=== PATIENT | male | born 1950 | race Caucasian/White ===

== ENCOUNTER → 2017-10-06 | Outpatient (CLI) | payer MEDICARE, OTHER | END | disposition home or self-care (01) | LOC: NM 09:22 | DX: C61 Malignant neoplasm of prostate (principal); K42.9 Umbilical hernia without obstruction or gangrene; K57.30 Diverticulosis of large intestine without perforation or abscess without bleeding; N40.0 Benign prostatic hyperplasia without lower urinary tract symptoms; J44.9 Chronic obstructive pulmonary disease, unspecified; Z85.46 Personal history of malignant neoplasm of prostate; Z79.01 Long term (current) use of anticoagulants | CPT/HCPCS: 74177; 78306; 96374; A9503 ==

== ENCOUNTER → 2017-11-18 | Outpatient (CLI) | payer MEDICARE, OTHER | END | disposition home or self-care (01) | LOC: US 08:07 | DX: I83.813 Varicose veins of bilateral lower extremities with pain (principal); I48.92 Unspecified atrial flutter; I48.91 Unspecified atrial fibrillation; I70.0 Atherosclerosis of aorta | CPT/HCPCS: 93306; 93970 ==

== ENCOUNTER → 2018-05-21 | Outpatient (CLI) | payer MEDICARE, OTHER ==
[2016-04-23 10:37] VITALS: BP 132/98
[~2018-05-21] MED LIST: AMIO200T4 PO; AMLO10TA6; APIX5TAB PO; ASPI-630 PO; BUDE10.2 IH; CARV12.52; DILT120C80 PO; DOCU-150 PO; FURO40TA4 PO; MULT-246 PO; OLME1TAB25; OMEG-123 PO; OMEP40CA5; OMEP40CA5 PO; POTA10TA12; SPIR25TA5; SUCR1TAB35; VALS1TAB33
--- NOTE | 2018-05-21 14:25 | CARD ---
MR#: [id number] Date of Study: 05/21/2018 Ordering Physician: ABIDA WILLADR, Referring Physician: ABIDA WILLARD Tech: Marta Dent RDCS APPROVED REPORT EXAM: Two-dimensional and M-mode echocardiogram with Doppler and color Doppler. Other Information Quality : AverageHR: 52bpm Rhythm : Bradycardia INDICATION Arrhythmia 2D DIMENSIONS RVDd3.5 (2.9-3.5cm)Left Atrium(2D)4.2 (1.6-4.0cm) IVSd1.7 (0.7-1.1cm)Aortic Root(2D)4.0 (2.0-3.7cm) LVDd5.0 (3.9-5.9cm)LVOT Diameter2.4 (1.8-2.4cm) PWd1.1 (0.7-1.1cm)LVDs3.5 (2.5-4.0cm) FS (%) 30.1 %SV67.6 ml LVEF(%)57.1 (>50%) M-Mode DIMENSIONS Left Atrium(MM)4.55 (2.5-4.0cm)Aortic Root4.15 (2.2-3.7cm) Aortic Valve AoV Peak Nikolay.448.2cm/sAoV PLJ394.5cm AO Peak GR.80.4mmHgLVOT Peak Nikolay.140.5cm/s AO Mean GR.52mmHgAVA (VTI)1.40cm2 Mitral Valve MV E Lmnybcmf04.7cm/sMV E Peak Gr.2mmHg MV DECEL [id number] A Befezygf36.6cm/s MV E Mean Gr.1mmHgE/A Ratio1.8 MV A [id number] Pulmonary Valve PV Peak Wtjqgvwl62.0cm/s Pulmonary Vein S1 Xmzofrvm21.6cm/sD2 Xoawxiez97.5cm/s PVa [id number] LEFT VENTRICLE The left ventricle is normal size. There is mild to moderate concentric left ventricular hypertrophy. The left ventricular systolic function is normal. The Ejection Fraction is estimated at 60%. There i s normal LV segmental wall motion. Transmitral Doppler flow pattern is Grade I-abnormal relaxation pa ttern. RIGHT VENTRICLE The right ventricle is normal size. There is normal right ventricular wall thickness. The right ventr icular systolic function is normal. ATRIA The left atrium is moderately dilated. The right atrium is borderline dilated. The interatrial septum is intact with no evidence for an atrial septal defect or patent foramen ovale as noted on 2-D or Do ppler imaging. AORTIC VALVE The aortic valve is severely thickened. Doppler and Color Flow revealed trace to mild aortic regurgit ation. There is moderate to severe valvular aortic stenosis with maximum pressure gradient of 80 mmHg and mean pressure gradient of 52 mmHg. MITRAL VALVE The mitral valve is calcified but opens well. There is no evidence of mitral valve prolapse. There is no mitral valve stenosis. Doppler and Color-flow revealed trace to mild mitral regurgitation. TRICUSPID VALVE The tricuspid valve is normal in structure and function. Doppler and Color Flow revealed no tricuspid valve regurgitation noted. There is no tricuspid valve prolapse or vegetation. There is no tricuspid valve stenosis. PULMONIC VALVE The pulmonary valve is normal in structure and function. Doppler and Color Flow revealed trace pulmon ic valvular regurgitation. There is no pulmonic valvular stenosis. GREAT VESSELS The aortic root is mildly enlarged. The ascending aorta is Mildly dilated. PERICARDIAL EFFUSION There is no evidence of significant pericardial effusion. Critical Notification Critical Value: No <Conclusion> The left ventricular systolic function is normal. The Ejection Fraction is estimated at 60%. There is normal LV segmental wall motion. The left atrium is moderately dilated. There is moderate to severe valvular aortic stenosis with maximum pressure gradient of 80 mmHg and mean pressure gradient of 52 mmHg. Trace to mild aortic regurgitation. Trace to mild mitral regurgitation. There is no evidence of significant pericardial effusion. Signed by : Abida Willard, Electronically Approved : 05/21/2018 14:23:59
== END | disposition home or self-care (01) ==
LOC: ECHO 12:28
PROVIDERS: ATTEND Internal Medicine Cardiovascular Disease
DX: I48.92 Unspecified atrial flutter (principal); I51.7 Cardiomegaly; Z79.899 Other long term (current) drug therapy
CPT/HCPCS: 93306

== ENCOUNTER → 2018-09-18 | Outpatient (CLI) | payer MEDICARE, OTHER ==
[2016-04-23 10:37] VITALS: BP 132/98
[~2018-09-18] MED LIST changes: +CARV12.511; -CARV12.52; -DILT120C80 PO; +DILT120C85 PO
--- NOTE | 2018-09-21 11:11 | RAD ---
MR#: [id number] Date of Study: 09/18/2018 Ordering Physician: ABIDA CAUSEY, Referring Physician: ABIDA CAUSEY, Tech: APPROVED REPORT Bilateral Lower Extremity Venous Study for DVT Indications Varicose Veins Findings Grayscale images of the bilateral iliac veins reveal patency throughout their course without any obvi ous obstruction noted. The veins appear to be compressible grossly. Due to large body habitus the abi ges are limited. Pedis waveforms on color Doppler and spectral images are grossly within normal limits. Critical Notification Critical Value: No <Conclusion> No obvious bilateral iliac vein obstruction/thrombosis noted. Technically difficult study. Signed by : Fly Ma, Electronically Approved : 09/21/2018 11:09:26
== END | disposition home or self-care (01) ==
LOC: US 09:57
PROVIDERS: ATTEND Internal Medicine Cardiovascular Disease
DX: I83.93 Asymptomatic varicose veins of bilateral lower extremities (principal)
CPT/HCPCS: 93970

== ENCOUNTER → 2019-04-08 | Outpatient (CLI) | payer MEDICARE ==
[2016-04-23 10:37] VITALS: BP 132/98
[~2019-04-08] MED LIST changes: -AMLO10TA6; +AMLO10TA8
--- NOTE | 2019-04-08 15:07 | CARD ---
MR#: [id number] Date of Study: 04/08/2019 Ordering Physician: ABIDA WILLARD, Referring Physician: ABIDA WILLARD Tech: Marta Dent KIRSTIN APPROVED REPORT EXAM: Two-dimensional and M-mode echocardiogram with Doppler and color Doppler. Other Information Quality : Technically LimitedHR: 54bpm Rhythm : BradycardiaTechnically limited study due to body habitus. INDICATION Arrhythmia 2D DIMENSIONS RVDd3.5 (2.9-3.5cm)Left Atrium(2D)4.1 (1.6-4.0cm) IVSd1.6 (0.7-1.1cm)Aortic Root(2D)4.1 (2.0-3.7cm) LVDd5.4 (3.9-5.9cm)LVOT Diameter2.2 (1.8-2.4cm) PWd1.2 (0.7-1.1cm)LVDs3.9 (2.5-4.0cm) FS (%) 27.7 %SV75.8 ml LVEF(%)53.2 (>50%) Aortic Valve AoV Peak Nikolay.429.1cm/sAoV NRK060.8cm AO Peak GR.73.7mmHgLVOT Peak Nikolay.104.9cm/s AO Mean GR.45mmHgAVA (VMAX)0.91cm2 AMBROSE (VTI)1.00cm2 Mitral Valve MV E Crgvpnur338.2cm/sMV E Peak Gr.125mmHg MV DECEL [id number] A Eewlrffj16.3cm/s MV E Mean Gr.2mmHgE/A Ratio2.2 Pulmonary Valve PV Peak Alultric72.6cm/s Pulmonary Vein S1 Shiilljm70.1cm/sD2 Nwsdophl31.3cm/s PVa [id number] LEFT VENTRICLE The left ventricle is normal size. There is moderate concentric left ventricular hypertrophy. The lef t ventricular systolic function is normal. The Ejection Fraction is 60%. There is normal LV segmental wall motion. Transmitral Doppler flow pattern is Grade III-reversible restrictive diastolic dysfunct ion. RIGHT VENTRICLE The right ventricle is normal size. There is normal right ventricular wall thickness. The right ventr icular systolic function is normal. ATRIA The left atrium is mildly dilated. The right atrium size is normal. The interatrial septum is intact with no evidence for an atrial septal defect or patent foramen ovale as noted on 2-D or Doppler imagi ng. AORTIC VALVE The aortic valve is moderately to severely calcified. The aortic valve is probably trileaflet. Dopple r and Color Flow revealed trace aortic regurgitation. There is severe valvular aortic stenosis. Calcu lated aortic valve area is 0.9 cm2 with maximum pressure gradient of 74 mmHg and mean pressure gradie nt of 45 mmHg. MITRAL VALVE The mitral valve is thickened but opens well. There is no evidence of mitral valve prolapse. There is no mitral valve stenosis. Doppler and Color-flow revealed mild mitral regurgitation. TRICUSPID VALVE The tricuspid valve is normal in structure and function. Doppler and Color Flow revealed trace tricus pid regurgitation. There is no tricuspid valve prolapse or vegetation. There is no tricuspid valve st enosis. PULMONIC VALVE The pulmonic valve is not well visualized. GREAT VESSELS The aortic root is mildly enlarged at 4.1cm. The ascending aorta is Mildly dilated at 4.2cm. The IVC is dilated and collapses <50% with inspiration. PERICARDIAL EFFUSION There is no evidence of significant pericardial effusion. Critical Notification Critical Value: No <Conclusion> The left ventricular systolic function is normal. The Ejection Fraction is 60%. There is normal LV segmental wall motion. Transmitral Doppler flow pattern is Grade III-reversible restrictive diastolic dysfunction. Severe valvular aortic stenosis with calculated aortic valve area is 0.9 cm2, maximum pressure gradie nt of 74 mmHg and mean pressure gradient of 45 mmHg. Mild mitral regurgitation. Trace tricuspid regurgitation. There is no evidence of significant pericardial effusion. Signed by : Abida Willard, Electronically Approved : 04/08/2019 15:07:25
== END | disposition home or self-care (01) ==
LOC: ECHO 14:05
PROVIDERS: ATTEND Internal Medicine Cardiovascular Disease
DX: I08.0 Rheumatic disorders of both mitral and aortic valves (principal); I77.89 Other specified disorders of arteries and arterioles
CPT/HCPCS: 93306

== ENCOUNTER → 2019-05-24 | Outpatient (CLI) | payer MEDICARE ==
[2016-04-23 10:37] VITALS: BP 132/98
--- NOTE | 2019-05-24 10:18 | RAD ---
MR#: [id number] Date of Study: 05/24/2019 Ordering Physician: ABIDA CAUSEY, Referring Physician: ABIDA CAUSEY, Tech: Cary Turner BS, RTR, RDMS, RVT APPROVED REPORT Patient Location : OUT-PATIENT Indications Lower Extremity Edema : Skin Changes Greater Saphenous Veins (GSV) Significant venous relux noted in the RIGHT GSV at the following levels : Superficial Femoral Junctio n Significant venous relux noted in the LEFT GSV at the following levels : Superficial Femoral Junction Lesser Saphenous Veins (LSV) Leftt Thigh extension noted : Yes Findings Grayscale images of the bilateral greater and lesser saphenous veins do not reveal any obvious eviden ce of thrombus. The right saphenofemoral junction measures approximately 5.8 mm and the left saphenofemoral junction measures approximately 8.6 mm. Only at the level of the bilateral saphenofemoral junctions is a reflu x of approximately 1.3 seconds bilaterally. The remainder of the greater and lesser saphenous veins do not show any evidence of reflux. Critical Notification Critical Value: No <Conclusion> 1. Reflux at the level of the bilateral saphenofemoral junctions not well visualized throughout the r est of the meter and lesser saphenous veins. Signed by : Fly Ma, Electronically Approved : 05/24/2019 10:18:06
== END | disposition home or self-care (01) ==
LOC: US 08:43
PROVIDERS: ATTEND Internal Medicine Cardiovascular Disease
DX: R60.0 Localized edema (principal)
CPT/HCPCS: 93970

== ENCOUNTER → 2019-08-04 | Outpatient (CLI) | payer MEDICARE ==
[2016-04-23 10:37] VITALS: BP 132/98
[~2019-08-04] MED LIST changes: -DILT120C85 PO; +DILT120C99 PO; +OMEP40CA45; +OMEP40CA45 PO; -OMEP40CA5; -OMEP40CA5 PO
--- NOTE | 2019-08-04 11:12 | RAD ---
MR#: [id number] Date of Study: 08/04/2019 Ordering Physician: ABIDA CAUSEY, Referring Physician: ABIDA CAUSEY, Tech: GRACE Saucedo, RDSC, T APPROVED REPORT Bilateral Lower Extremity Venous Study for DVT Patient Location: OUT-PATIENT Indications POST ABLATION BILAT GSV Findings The bilateral lower extremity deep veins were evaluated for thrombus with color Doppler, spectral and grayscale images. On the right the grayscale images of the common femoral, superficial femoral and popliteal veins do n ot demonstrate any evidence of thrombus and these veins appear to be compressible. The below-knee vei ns were not well visualized but grossly appear to be compressible. Spectral imaging and color Doppler do not reveal any evidence of obstruction to flow with normal respirophasic variation above the knee . Below the knee there is spontaneous flow noted. On the left, the grayscale images of the common femoral, superficial femoral and popliteal veins do n ot demonstrate any evidence of thrombus and these veins appear to be compressible. The below-knee vei ns again were not well visualized but grossly appear to be compressible. Spectral imaging and color D oppler do not reveal any evidence of obstruction to flow with normal respirophasic variation above th e knee. The below-knee veins demonstrate spontaneous flow. The bilateral greater saphenous veins are noncompressible consistent with recent ablation therapy. Critical Notification Critical Value: No <Conclusion> 1. Bilateral successful greater saphenous vein ablations 2. No lower extremity DVT. (Technically difficult due to body habitus) Signed by : Fly Ma, Electronically Approved : 08/04/2019 11:11:46
== END | disposition home or self-care (01) ==
LOC: US 10:00
PROVIDERS: ATTEND Internal Medicine Cardiovascular Disease
DX: I87.2 Venous insufficiency (chronic) (peripheral) (principal)
CPT/HCPCS: 93970